=== PATIENT | male | born 1990 | race Two or more races ===

== ENCOUNTER 2025-08-04 22:05 | Emergency (ER) | payer MEDICAID, SELFPAY ==
[2025-08-04 22:07] VITALS: BMI 36.6
[2025-08-04 23:03] VITALS: BP 149/98; PULSE 98; RESP 18; TEMP 36.8; O2SAT 98
--- NOTE | 2025-08-04 23:09 | XR_ITS ---
EXAMINATION: Left hand 2 views TECHNIQUE: AP lateral left hand 2 views Date and time: August 04, 2025, 1139 hours INDICATIONS: Patient fell 2 days ago with hand pain FINDINGS: Soft tissue swelling dorsum of the hand No acute fracture No dislocation IMPRESSION: No acute fracture
--- NOTE | 2025-08-04 23:09 | XR_ITS ---
Examination: Wrist, left 3 views Technique: Wrist AP, oblique, lateral 3 views Date and time of exam: Patient fell 3 days ago with injury to the wrist, wrist pain FINDINGS: No acute fracture No dislocation No foreign body IMPRESSION: No acute fracture
[2025-08-05] MEDS: HYDROcodone/APAP 5/325 TABLET 1 TAB PO (00:13)
--- NOTE | 2025-08-05 00:23 | EDNOTE_ITS ---
Upper Extremity Injury RME/HPI General Chief Complaint: Hand/Wrist Problems Stated Complaint: LEFT HAND INJURY Time Seen by Provider: 08/04/25 22:49 Arrival date/time: 08/04/25 22:05 This is a case of 35-year-old male who came in in the emergency room with left wrist pain and left hand pain history of present illness started 1 hour prior to arrival in the emergency room patient tripped and fell and landed on the left hand and left wrist now with pain and swelling thus decided to sought consult here in the emergency room patient denies any head neck chest or abdominal injury Limitations: no limitations Related Data Previous Rx's ?Medication ?Instructions ?Recorded meloxicam 7.5 mg tablet 7.5 mg PO QDAY #10 tabs 02/18 02/09 allopurinol 100 mg tablet 100 mg PO QDAY #30 tabs 11/19 11/13 ibuprofen 800 mg tablet 800 mg PO Q8H PRN pain #20 t abs 08/05/25 Allergies Allergy/AdvReac Type Severity Reaction Status Date / Time No Known Allergies Allergy Verified 08/04/25 22:06 Review of Systems Review of Systems Systems Reviewed: All systems reviewed, normal except as documented Constitutional Constitutional: Reports system reviewed and no additional complaints, except as documented and Reports as per HPI Cardiovascular Cardiovascular: Reports system reviewed and no additional complaints, except as documented and Reports as per HPI Respiratory Respiratory: Reports system reviewed and no additional complaints, except as documented and Reports as per HPI Gastrointestinal Gastrointestinal: Reports system reviewed and no additional complaints, except as documented and Reports as per HPI Musculoskeletal Musculoskeletal: Reports system reviewed and no additional complaints, except as documented and Reports as per HPI Neurologic Neurologic: Reports system reviewed and no additional complaints, except as documented and Reports as per HPI Past Medical History Social History SMOKING STATUS: Current every day smoker ED Exam General Limitations: Present no limitations General appearance: Present alert, in no apparent distress and other (Patient is awake alert oriented not in distress nontoxic looking well-hydrated well- nourished) Head Head exam: Present atraumatic, normocephalic and normal inspection Eye Eye exam: Present normal appearance, PERRL and EOMI ENT ENT exam: Present normal exam, normal oropharynx and mucous membranes moist Neck Neck exam: Present normal inspection, full ROM and trachea midline; Absent tenderness, meningismus, lymphadenopathy or thyromegaly Chest Chest inspection: Present normal inspection and symmetric chest wall rise; Absent tenderness Respiratory Respiratory exam: Present normal lung sounds bilaterally; Absent respiratory distress, wheezes, stridor, accessory muscle use or prolonged expiratory phase Cardiovascular Cardiovascular exam: Present regular rate, normal rhythm and normal heart sounds; Absent bradycardia, tachycardia, irregular rhythm, systolic murmur or diastolic murmur Abdominal Exam Abdominal exam: Present soft and normal bowel sounds; Absent distention, tenderness, guarding, rebound, rigidity, diminished bowel sounds, hyperactive bowel sounds, hypoactive bowel sounds or organomegaly Extremities Exam Extremities exam: Present normal inspection and full ROM Expanded Upper Extremity Exam Forearm/Wrist exam: Present tenderness, swelling and other (ROM is limited neurovascular intact); Absent abrasion, laceration, ecchymosis, deformity, crepitus, dislocation, erythema, tenderness over anatomical snuff box or pain with axial thumb loading Hand exam: Present tenderness, swelling and other (ROM is limited neurovascular intact nail is intact no snuffbox tenderness); Absent abrasion, laceration, skin avulsion, ecchymosis, deformity, crepitus, dislocation, erythema, amputation, nail avulsion or subungual hematoma Back Exam Back exam: Present normal inspection and full ROM Neurological Exam Neurological exam: Present alert, oriented X3, CN II-XII intact, normal gait and reflexes normal; Absent motor sensory deficit Psychiatric Psychiatric exam: Present normal affect and normal mood Skin Skin exam: Present warm, dry, intact and normal color Course Quality Measures none Orders Category Date Time Status Splint / Immobilizer STAT Care 08/05/25 00:09 Completed XR hand LT 2V Stat Exams 08/04/25 23:09 Completed XR wrist LT 2V Stat Exams 08/04/25 23:09 Completed HYDROcodone*/APAP 5/325 [[place] 5/325] Med 08/05/25 00:09 Discontinued 1 tab PO X1 ONE Vital Signs Vital signs: Vital Signs Temperature 98.2 F 08/04/25 23:03 Pulse Rate 98 08/04/25 23:03 Respiratory Rate 18 08/04/25 23:03 Blood Pressure 149/98 H 08/04/25 23:03 Pulse Oximetry (%) 98 08/04/25 23:03 Oxygen Delivery Method Room Air 08/04/25 23:03 Oxygen saturation is 98% on room air Extremity Injury MDM Narrative MDM Narrative:: This is a case of 35-year-old male who came in in the emergency room with left wrist pain and left hand pain history of present illness started 1 hour prior to arrival in the emergency room patient tripped and fell and landed on the left hand and left wrist now with pain and swelling thus decided to sought consult here in the emergency room patient denies any head neck chest or abdominal injury physical examination patient is awake alert oriented not in distress nontoxic looking well-hydrated well-nourished patient noted to have moderate tenderness on the left hand and left wrist with swelling no crepitation no deformity no redness ROM is limited pulses were full and equal capillary refill less than 2 seconds sensory is intact nail is intact x-ray showed no fracture no dislocation patient was given [place] for pain patient was given a splint and sling on the left wrist and hand to provide immobilization patient tolerated well neurovascular intact patient will continue RICE treatment at home follow-up with PCP for reevaluation and for any worsening symptoms or any emergent concern return precaution in the ER was advised Patient was discharged with comfortable condition walking with stable gait. Pat ient verbalized no further complains explained diagnosis and answered patient question. Patient is comfortable with the proposed management plan including the need to follow up with his/her primary care physician and any specialist if applicable Discussed patient for any urgent condition or worsening sx, He/She needed to go to emergency room immediately or call 911. Patient acknowledge the responsibility to follow up as instructed and to monitor her/his symptoms. For any persistence of the symptoms for more than 3-5 days return precaution advised. Discussed the result of the test and was given printed discharge instruction Patient data External records reviewed:: [facility] previous records Clinical information provided by:: patient Social determinants that could affect healthcare access:: none Patient has the following chronic illnesses:: None How is presenting disease/condition affected by chronic disease/condition?: no chronic disease Evaluation data The following diagnostics were reviewed and interpreted by me:: radiology exam(s) Lab and/or radiology exams considered but not ordered:: Reviewed Interpretation Summary: Reviewed Medications / Prescriptions Medications or Prescriptions considered but not ordered:: Given Medication administrations:: Medication Administration History Discontinued Medications Hydrocodone Bitart/Acetaminophen (Hydrocodone/Apap 5/325 Tablet) 1 tab PO X1 ONE Stop: 08/05/25 00:10 Last Admin: 08/05/25 00:13 Dose: 1 tab Documented By: BD Given Consultations Consultation(s) initiated? (list below): No Diagnosis Upper Extremity Injury Differential Diagnosis: sprain and strain of wrist and fracture of hand Most likely diagnosis given after review of the tests above:: Hand sprain wrist sprain Admission Indicated Admission indicated?: not indicated Explain why admission is indicated or not indicated:: Not indicated Admission Request Was there a request for admission?: No Admission Attestation Admission request attestation: Not indicated Disposition Plan Disposition Plan: Discharge Discharge Attestation Discharge Attestation: The patient and all family members were given an opportunity to ask questions and understood the discharge instructions. Discharge instructions specifically effects, indications for sooner follow up or return to the emergency department, and the expected course of current diagnosis. Patient condition: Stable Discharge Plan Plan Patient Disposition: HOME (Self Care) Patient condition on transfer: Stable Prescriptions/Referrals Prescriptions/Med Rec: New ibuprofen 800 mg tablet 800 mg PO Q8H PRN (Reason: pain) Qty: 20 0RF No Action meloxicam 7.5 mg tablet 7.5 mg PO QDAY Qty: 10 0RF allopurinol 100 mg tablet 100 mg PO QDAY Qty: 30 0RF Referrals: No Primary/Family,Physician [Primary Care Provider] - In 1 week Problem List Clinical Impression: Sprain of hand, left, Left wrist sprain Patient/Caregiver Discharge Instructions Education Materials: ED Splint Care, Fiberglass, ED Hand Sprain, ED Wrist Sprain, ED RICE Additional Instructions: Follow-up with your primary care physician in 2 days for reevaluation worsening symptoms or any emergent concerns such as numbness weakness tingling sensation call 911 or go to the nearest emergency room ice pack every 2 hours for 30 minut es for 24 hours then alternate with warm compress elevate to decrease swelling keep the splint in place until cleared by your primary care physician take Tylenol Motrin as needed for pain Print Language: Maltese Stand Alone Forms: [place] Award Info., Patient Portal Info Letter PA/SOLUTION ADVISOR Supervising Physician PA/SOLUTION ADVISOR Supervising Physician: Dr. Shaw
== END 2025-08-05 00:21 | disposition home or self-care (01) ==
PROVIDERS: Emergency Provider Emergency Medicine
DX: S63.92XA Sprain of unspecified part of left wrist and hand, initial encounter (principal); S63.502A Unspecified sprain of left wrist, initial encounter; W01.0XXA Fall on same level from slipping, tripping and stumbling without subsequent striking against object, initial encounter
CPT/HCPCS: 29125; 73100; 73110; 73120; 99283; A9270